=== PATIENT | male | born 1955 | race Caucasian/White ===

== ENCOUNTER 2017-02-16 21:43 | Inpatient (IN) | payer OTHER ==
[~2017-02-16] VITALS: Ht 167.6 cm; Wt 77.3 kg
[~2017-02-16 21:43] MED LIST: ASPIRIN81 M1 PO; CIPRO500 MG PO; CLEOCIN300 MG PO; COQ-10100 MG PO; CRESTOR10 MG PO; DIOVAN80 MG PO; FISH OIL 1,0001 EAC7 PO; FLAGYL500 MG PO; FLEXERIL10 MG PO; GARLIC1 EACH PO; GLUCOPHAGE500 MG PO; IRON325 M1 PO; MOTRIN600 MG PO; NORCO 5/3251 TABLET PO; OXYCONTIN10 MG PO; PERCOCET 5/31 TABLET PO; ULTRAM50 MG PO; VITAMIN C1000 MG PO; VITAMIN D32000 UNI1 PO
[2017-02-16 23:35] LABS: BASOPHIL COUNT 0.1 K/uL (0-0.1); EOSINOPHIL (%) 4.4 % (0-5); EOSINOPHIL COUNT 0.4 K/uL (0-0.3); HEMATOCRIT 43.5 % (38.0-50.0); IMMATURE GRANULOCYTE (%) 0.3 % (0.0-0.7); INSTRUMENT ABS NEUTROPHIL CT 4.8 K/uL; LYMPHOCYTE COUNT 2.5 K/uL (1.0-2.8); MCH 32.2 PG (29.0-34.0); MCHC 34.7 G/DL (30.0-36.0); MCV 92.8 FL (86-99); MEAN PLAT.VOLUME 9.4 uM^3 (9.0-12.4); MONOCYTE (%) 10.6 % (3-12); MONOCYTE COUNT 0.9 K/uL (0-0.8); NEUTROPHIL (%) 55.3 % (45-76); NEUTROPHIL COUNT 4.8 K/uL (1.8-6.4); PLATELET COUNT 267 K/uL (156-360); RBC DIS.WIDTH-CV 12.9 % (11.8-14.6); RBC DIS.WIDTH-SD 43.8 % (39-53); RED BLOOD COUNT 4.69 M/uL (4.00-5.50); WHITE BLOOD COUNT 8.7 K/uL (4.1-10.2)
[2017-02-16 23:48] LABS: CHLORIDE 105 mEq/L (99-109); POTASSIUM 3.7 mEq/L (3.7-5.4); SODIUM 141 mEq/L (136-147)
[2017-02-16 23:50] LABS: GLUCOSE 127 mg/dL (70-99)
[2017-02-16 23:51] LABS: ANION GAP 16 MEQ/L (2-14)
[2017-02-16 23:53] LABS: GFR ESTIMATE (CALCULATED) > 59 mL/min/
[2017-02-16 23:54] LABS: UREA NITROGEN (BUN) 13 mg/dL (9-23)
[2017-02-17] MEDS ORDERED: LO-DOSE ASPIRIN81 M2 PO (01:24)
[2017-02-17] MEDS ORDERED: OXYCONTIN20 MG PO (01:25)
[2017-02-17] MEDS ORDERED: OXYCODONE HCL10 MG PO (01:26)
[2017-02-17] MEDS ORDERED: ODOR FREE GARL100 MG PO (01:27)
[2017-02-17] MEDS ORDERED: CYANOCOBALAM1000 MCG PO (01:28)
[2017-02-17] MEDS ORDERED: AMOXICILLIN875 MG PO (01:30)
[2017-02-17 03:01] LABS: BASOPHIL COUNT 0.1 K/uL (0-0.1); EOSINOPHIL (%) 4.2 % (0-5); EOSINOPHIL COUNT 0.4 K/uL (0-0.3); IMMATURE GRANULOCYTE (%) 0.2 % (0.0-0.7); INSTRUMENT ABS NEUTROPHIL CT 4.7 K/uL; LYMPHOCYTE COUNT 2.6 K/uL (1.0-2.8); MCH 31.9 PG (29.0-34.0); MCV 93.8 FL (86-99); MEAN PLAT.VOLUME 9.3 uM^3 (9.0-12.4); MONOCYTE (%) 11.1 % (3-12); NEUTROPHIL (%) 54.3 % (45-76); NEUTROPHIL COUNT 4.7 K/uL (1.8-6.4); PLATELET COUNT 238 K/uL (156-360); RBC DIS.WIDTH-CV 12.9 % (11.8-14.6); RBC DIS.WIDTH-SD 44.1 % (39-53); RED BLOOD COUNT 4.48 M/uL (4.00-5.50); WHITE BLOOD COUNT 8.7 K/uL (4.1-10.2)
[2017-02-17 03:34] VITALS: BP 147/84
[2017-02-17 07:25] VITALS: BP 132/71
[2017-02-17 07:51] LABS: ALKALINE PHOSPHATASE 80 IU/L (3-129); ANION GAP 7 MEQ/L (2-14); CHLORIDE 109 MEQ/L (99-109); CREATINE KINASE 154 IU/L (1-294); GFR ESTIMATE (CALCULATED) > 59 mL/min/; GLUCOSE 176 mg/dL (70-99); POTASSIUM 4.2 MEQ/L (3.7-5.4); SAMPLE HEMOLYSIS CHECK 0; SAMPLE ICTERIC CHECK 0; SAMPLE LIPEMIA CHECK 0; SODIUM 140 MEQ/L (136-147); TOTAL BILIRUBIN 0.7 MG/DL (0.0-1.0); TOTAL CK 154 IU/L (1-294); UREA NITROGEN (BUN) 14 mg/dL (9-23)
[2017-02-17 07:53] LABS: CK-MB 2.1 ng/mL (0.0-4.9)
[2017-02-17 07:54] LABS: POINT-OF-CARE METER ID UU14149398
[2017-02-17 11:20] VITALS: BP 156/90
[2017-02-17 12:06] LABS: POINT-OF-CARE METER ID UU14149398
[2017-02-17 15:20] VITALS: BP 125/71
[2017-02-17 17:28] LABS: POINT-OF-CARE METER ID UU14149398
[2017-02-17 17:52] LABS: C-REACTIVE PROTEIN 1.9 MG/L (0-10)
[2017-02-17 19:40] VITALS: BP 122/77
[2017-02-17 21:16] LABS: POINT-OF-CARE METER ID UU14149398
[2017-02-17 23:38] VITALS: BP 138/81
[2017-02-18 03:54] VITALS: BP 120/81
[2017-02-18 07:00] VITALS: BP 131/80
[2017-02-18 08:22] LABS: POINT-OF-CARE METER ID UU14149398
[2017-02-18 11:23] VITALS: BP 142/79
[2017-02-18 11:41] LABS: POINT-OF-CARE METER ID UU14149398
[2017-02-18] MEDS ORDERED: MOTRIN600 MG PO (13:45)
== END 2017-02-18 14:30 | disposition home or self-care (01) | DRG 563 ==
LOC: EME 21:43 → EXP 21:43 → EDOF 02-17 02:25 → 4SOUTH 02-17 02:25
PROVIDERS: Emergency Medicine; Hospitalist; Internal Medicine
DX: S86.812A Strain of other muscle(s) and tendon(s) at lower leg level, left leg, initial encounter (principal); X58.XXXA Exposure to other specified factors, initial encounter; E87.2 Acidosis; E78.00 Pure hypercholesterolemia, unspecified; I10 Essential (primary) hypertension; E11.9 Type 2 diabetes mellitus without complications; F17.210 Nicotine dependence, cigarettes, uncomplicated; M17.12 Unilateral primary osteoarthritis, left knee; F40.240 Claustrophobia; G89.29 Other chronic pain
CPT/HCPCS: 73700; 80048; 80053; 80202; 82550; 82553; 82948; 83605; 85025; 86140; 87040; 93971; 99281; 99285; J1644; J1815; J2543; J3370; J7050